=== PATIENT | female | born 1935 | race Caucasian/White ===

== ENCOUNTER 2023-10-07 09:49 | Emergency (ER) | payer OTHER ==
[~2023-10-07] VITALS: Ht 162.6 cm; Wt 74.8 kg
[2023-10-07 10:06] VITALS: BP_SYST 124; PULSE 84; RESP 18; TEMP 97.3; O2SAT 98
[2023-10-07] MEDS ORDERED: ACET1TAB93 PO (12:18)
[2023-10-07] MEDS ORDERED: ACETAMINOPHEN 500 MG TABLET PO ONE (12:30)
[2023-10-07 14:44] VITALS: BP_SYST 130; PULSE 82; RESP 18; TEMP 98.1; O2SAT 97
== END 2023-10-07 14:10 | disposition home or self-care (01) ==
LOC: SED 09:49
DX: M54.12 Radiculopathy, cervical region (principal); M54.2 Cervicalgia; M25.512 Pain in left shoulder; Z88.5 Allergy status to narcotic agent; Z79.899 Other long term (current) drug therapy
CPT/HCPCS: 72125-TC; 76376; 99284